=== PATIENT | male | born 1985 | race African-American/Black ===

== ENCOUNTER 2020-10-12 11:28 | Emergency (ER) | payer SELFPAY ==
--- NOTE | ~2020-10-12 | XR_ITS ---
EXAMINATION: XR finger 4th LT min 2V INDICATION: Left fourth finger pain TECHNIQUE: Three views of the left fourth finger are obtained. COMPARISON: None available FINDINGS: There is no fracture, dislocation, or subluxation. The bones, soft tissues, and joint space s are normal. IMPRESSION: 1. No acute osseous abnormality. Reviewed, dictated and finalized at location B.
[2020-10-12 11:45] VITALS: BP 123/71; PULSE 72; RESP 16; TEMP 36.3; O2SAT 100
--- NOTE | 2020-10-12 13:53 | ED.GENADULT ---
HPI - General Adult General Chief complaint: Extremity Injury, Upper Stated complaint: l index finger pain Time Seen by Provider: 10/12/20 12:25 Source: patient Mode of arrival: ambulatory Limitations: no limitations History of Present Illness HPI narrative: Patient is a 35-year-old male who presents to emergency department for evaluation of left ring finger injury that occurred while playing basketball yesterday has since been unable to extend the distal phalanx of the left ring finger denies other injuries or complaints or similar occurrence in the past presents with metal finger splint Related Data Home Medications Medication Instructions Recorded Confirmed No Home Medications 10/12/20 10/12/20 Allergies Allergy/AdvReac Type Severity Reaction Status Date / Time No Known Allergies Allergy Unknown Verified 10/12/20 11:29 Review of Systems Review of Systems: All systems reviewed & are unremarkable except as noted in HPI and below PMFSH Social History Social History (Updated 10/12/20 @ 13:55 by Chetan Corral PA-C) Smoking status: Never smoker Gender identity (if verbalized by the patient): Male Exam Narrative: Exam Narrative: GENERAL: Well-appearing, well-nourished, and in no acute distress. HEAD: Normocephalic, atraumatic. EYES: PERRLA and EOMI. ENT: Nares clear, no rhinorrhea or epistaxis. Mucous membranes moist. CHEST: Clear to auscultation. No respiratory distress. No wheezes rales or rhonchi HEART: Regular rate and rhythm. No murmur heard. EXTREMITIES: Normal range of motion. No edema. Patient with inability to extend the distal left ring finger at the DIP joint remainder of finger with normal range of motion and strength no bruising erythema or other abnormalities. Tenderness at the DIP joint SKIN: Warm, dry, no rash. NEURO: Alert and oriented x3. Cranial nerves II through XII grossly intact. Neurovascularly intact PSYCH: Normal mood and affect. Course Course Emergency Course: Patient with extensor tendon injury advised to continue to wear the splint and given hand surgery follow-up Vital Signs Vital signs: Vital Signs Temperature 97.4 F L 10/12/20 11:45 Pulse Rate 72 10/12/20 11:45 Respiratory Rate 16 10/12/20 11:45 Blood Pressure 123/71 10/12/20 11:45 Pulse Oximetry 100 10/12/20 11:45 Temperature 97.4 F L 10/12/20 11:45 Pulse Rate 72 10/12/20 11:45 Respiratory Rate 16 10/12/20 11:45 Blood Pressure 123/71 10/12/20 11:45 Pulse Oximetry 100 10/12/20 11:45 Medical Decision Making MDM Narrative Medical decision making narrative: Patients injury or pain is consistent with musculoskeletal etiology. No signs of neurological or vascular compromise on exam. Compartments and tisues are soft without signs of compartment syndrome. Pain is felt appropriate for further evaluation on an outpatient basis. Vital Signs Vital Signs: Vital Signs Temperature 97.4 F L 10/12/20 11:45 Pulse Rate 72 10/12/20 11:45 Respiratory Rate 16 10/12/20 11:45 Blood Pressure 123/71 10/12/20 11:45 Pulse Oximetry 100 10/12/20 11:45 Temperature 97.4 F L 10/12/20 11:45 Pulse Rate 72 10/12/20 11:45 Respiratory Rate 16 10/12/20 11:45 Blood Pressure 123/71 10/12/20 11:45 Pulse Oximetry 100 10/12/20 11:45 Imaging Data Radiologist's impression: ITS Impressions Finger X-Ray 10/12/20 12:11 IMPRESSION: 1. No acute osseous abnormality. Discharge Plan Discharge Clinical Impression: Injury of tendon of finger Patient Disposition: Home, Self-Care Condition: Stable Instructions: Antibiotic Form Additional Instructions: Wear metal finger splint and follow-up with hand surgeon by phone in the next 3 days to set up for reevaluation Return if symptoms worsen or concerns or any increase in redness swelling pain or fever over 100.5 Follow patient education sheet Prescriptions: No Action No Home Medications R
== END 2020-10-12 14:00 | disposition home or self-care (01) ==
PROVIDERS: Emergency Provider Emergency Medicine
DX: S66.305A Unspecified injury of extensor muscle, fascia and tendon of left ring finger at wrist and hand level, initial encounter (principal); Y93.67 Activity, basketball; X58.XXXA Exposure to other specified factors, initial encounter
CPT/HCPCS: 73140; 99283